=== PATIENT | female | born 1965 ===

== ENCOUNTER 2017-04-22 13:27 | Emergency (ER) | payer MEDICAID, OTHER ==
[2017-04-22 13:27] VITALS: BMI 28.3
[2017-04-22 13:34] VITALS: BP 140/90; PULSE 91; RESP 18; TEMP 98; O2SAT 100
[2017-04-22] MEDS ORDERED: Lidocaine 5% Patch TD STA (13:46)
[2017-04-22] MEDS ORDERED: Lidocaine 5% Patch TD ONE (13:51)
--- NOTE | 2017-04-22 14:03 | ED PDOC ---
HPI: Back Time Seen by Provider: 04/22/17 13:34 Chief Complaint (Nursing): Back Pain Chief Complaint (Provider): back pain History Per: Patient History/Exam Limitations: no limitations Onset/Duration Of Symptoms: Days (x2), Persistent (x1 month) Current Symptoms Are (Timing): Still Present Additional Complaint(s): 52 year old female with previous medical history of metastatic lung cancer, who presents to the emergency department with a complaint of atraumatic bilateral lower back pain worsen in the last 2 days. Denied any incontinence, bloody urine , difficulty urinating, abdominal pain, chest pain, shortness of breath or taking pain mediation for relief. Patient stated pain is present everyday and had tried a "pain patch" from her PCP but it subsequently caused her to vomit. PMD: Thom Awan MD Past Medical History Reviewed: Historical Data, Nursing Documentation, Vital Signs Vital Signs: Last Vital Signs Temp 98 F 04/22/17 13:31 Pulse 91 H 04/22/17 13:31 Resp 18 04/22/17 13:31 BP 140/90 04/22/17 13:31 Pulse Ox 100 04/22/17 13:31 - Medical History PMH: Malignancy (lungs) Denies: Depression - Family History Family History: States: Unknown Family Hx - Immunization History Hx Tetanus Toxoid Vaccination: No Hx Influenza Vaccination: No Hx Pneumococcal Vaccination: No - Home Medications Home Medications: Ambulatory Orders Medication Instructions Recorded Aspirin [Ecotrin] 81 mg PO DAILY 12/07/16 HYDROmorphone [Dilaudid] 1 mg PO QID PRN #15 tab 12/07/16 Ondansetron ODT [Zofran ODT] 1 odt PO BID PRN #20 odt 12/07/16 Polyethylene Glycol 3350 [Miralax] 17 gm PO DAILY #270 ml 12/07/16 oxyCODONE/Acetaminophen [Percocet 1 tab PO BID PRN 12/07/16 5/325 mg Tab] Lidocaine 5% [Lidoderm] 1 ea TD DAILY PRN #15 patch 04/22/17 Meloxicam [Mobic] 7.5 mg PO DAILY PRN #30 tab 04/22/17 Methocarbamol [Robaxin] 500 mg PO Q8 PRN #30 tablet 04/22/17 Ondansetron ODT [Zofran ODT] 4 mg PO TID #21 odt 04/22/17 - Allergies Allergies/Adverse Reactions: Allergies Allergy/AdvReac Type Severity Reaction Status Date / Time No Known Allergies Allergy Verified 04/22/17 13:31 Review of Systems ROS Statement: Except As Marked, All Systems Reviewed And Found Negative Cardiovascular: Negative for: Chest Pain Respiratory: Negative for: Shortness of Breath Gastrointestinal: Negative for: Abdominal Pain Genitourinary Female: Negative for: Dysuria, Incontinence, Hematuria Musculoskeletal: Positive for: Back Pain (lower). Negative for: Other (trauma) Physical Exam - Reviewed Nursing Documentation Reviewed: Yes Vital Signs Reviewed: Yes - Physical Exam Appears: Positive for: Well, Non-toxic, No Acute Distress Head Exam: Positive for: ATRAUMATIC, NORMAL INSPECTION, NORMOCEPHALIC Skin: Positive for: Normal Color. Negative for: Rash Eye Exam: Positive for: Normal appearance, EOMI, PERRL. Negative for: Nystagmus ENT: Positive for: Normal ENT Inspection Neck: Positive for: Normal, Painless ROM, Supple. Negative for: Decreased ROM Cardiovascular/Chest: Positive for: Regular Rate, Rhythm, Chest Non Tender Respiratory: Positive for: Normal Breath Sounds. Negative for: Decreased Breath Sounds, Respiratory Distress Gastrointestinal/Abdominal: Positive for: Normal Exam, Soft. Negative for: Tenderness Back: Positive for: Vertebral Tenderness (paralumbar with spasm bilaterally ). Negative for: L CVA Tenderness, R CVA Tenderness Extremity: Positive for: Normal ROM. Negative for: Tenderness, Pedal Edema Neurologic/Psych: Positive for: Alert (x3), Oriented - Laboratory Results Urine dip results: Negative for: Leukocyte Esterase, Blood, Nitrate, Ketones, Glucose, Bilirubin, Protein - ECG O2 Sat by Pulse Oximetry: 100 (RA) Pulse Ox Interpretation: Normal Medical Decision Making Medical Decision Making: Initial Impression: Back pain Initial Plan: * Urine * Urine dipstick * Lidoderm * Toradol 30mg IM * Valium 10mg PO * Xray LS spine Time: 1533 --Xray LS FINDINGS: BONES: There are no acute compression fractures no retropulsed fragments. Vertebral bodies exhibit normal stature. . Vertebral bodies and facets normally aligned. There is dense appearance of the right-sided L4 pedicle which could be due to facet arthropathy however possibility of an underlying sclerotic lesion within the right L4 pedicle must be considered as well. . In addition, there is a rounded sclerotic lesion in the left inferior pelvic bone and apparent sclerotic changes in the right medial iliac wing and possibly the right sacral ala. 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 . Follow-up of CT scan of the abdomen and pelvis recommended. DISC SPACES: Mild multilevel facet arthropathy most notably affecting L5-S1 through the L3- L4 levels in decreasing order of severity. . Small marginal anterolateral osteophyte formation also noted most conspicuous at the L3-L4 level and less so the remaining levels. OTHER FINDINGS: Large amount of stool seen throughout the colon though most notably within the polyp additionally, cecum and ascending colon consistent with fecal retention/ constipation. Note made of irregular calcific density in the upper abdomen seen on lateral view only. This focus is of uncertain etiology. Followup CT scan of the abdomen pelvis could be performed for further evaluation. IMPRESSION: No acute fractures. Dense appearing right L4 pedicle which may in part be due to hypertrophic facet joint changes however the possibility of a sclerotic lesion within the right L4 pedicle must be excluded. There also sclerotic changes seen within the pelvis. Follow-up CT scan to assess for sclerotic metastasis. Note that these findings were discussed with emergency room [facility] at approximately 3:53 p.m. and back verification. On re-evaluation pt. reports feeling much better. States pain has improved. Pt.' s daughter, Shira, is at bedside who confirms that L4 and hip metastases is a known diagnosis. Pt. f/u with Dr. Devan Rehman, oncology. Scribe Attestation: Documented by Tsering Costa, acting as a scribe for Luigi Kingston PA-C. Provider Scribe Attestation: All medical record entries made by the Scribe were at my direction and personally dictated by me. I have reviewed the chart and agree that the record accurately reflects my personal performance of the history, physical exam, medical decision making, and the department course for this patient. I have also personally directed, reviewed, and agree with the discharge instructions and disposition. Disposition - Clinical Impression Clinical Impression: Back pain, Metastasis - Patient ED Disposition Is Patient to be Admitted: No - Disposition Referrals: Debbi Hair [Outside] Disposition: Routine/Home Disposition Time: 16:24 Condition: STABLE Prescriptions: Lidocaine 5% [Lidoderm] 1 ea TD DAILY PRN #15 patch PRN Reason: Pain Meloxicam [Mobic] 7.5 mg PO DAILY PRN #30 tab PRN Reason: Pain, Mild (1-3) Methocarbamol [Robaxin] 500 mg PO Q8 PRN #30 tablet PRN Reason: Muscle Spasm Ondansetron ODT [Zofran ODT] 4 mg PO TID #21 odt Instructions: Back Pain (ED), Bone Metastasis (ED) Forms: [employer] (Syrian) Print Language: SERBIAN
--- NOTE | 2017-04-22 15:57 | RAD ---
PROCEDURE: Radiographs of the Lumbar Spine. HISTORY: pain COMPARISON: No prior. FINDINGS: BONES: There are no acute compression fractures no retropulsed fragments. Vertebral bodies exhibit normal stature. . Vertebral bodies and facets normally aligned. There is dense appearance of the right-sided L4 pedicle which could be due to facet arthropathy however possibility of an underlying sclerotic lesion within the right L4 pedicle must be considered as well. . In addition, there is a rounded sclerotic lesion in the left inferior pelvic bone and apparent sclerotic changes in the right medial iliac wing and possibly the right sacral ala. 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 . Follow-up of CT scan of the abdomen and pelvis recommended. DISC SPACES: Mild multilevel facet arthropathy most notably affecting L5-S1 through the L3-L4 levels in decreasing order of severity. . Small marginal anterolateral osteophyte formation also noted most conspicuous at the L3-L4 level and less so the remaining levels. OTHER FINDINGS: Large amount of stool seen throughout the colon though most notably within the polyp additionally, cecum and ascending colon consistent with fecal retention/ constipation. Note made of irregular calcific density in the upper abdomen seen on lateral view only. This focus is of uncertain etiology. Followup CT scan of the abdomen pelvis could be performed for further evaluation. IMPRESSION: No acute fractures. Dense appearing right L4 pedicle which may in part be due to hypertrophic facet joint changes however the possibility of a sclerotic lesion within the right L4 pedicle must be excluded. There also sclerotic changes seen within the pelvis. Follow-up CT scan to assess for sclerotic metastasis. Note that these findings were discussed with emergency room [facility] at approximately 3:53 p.m. and back verification.
== END 2017-04-22 16:49 | disposition home or self-care (01) ==
LOC: H.ER 13:27
DX: M54.9 Dorsalgia, unspecified (principal); C79.51 Secondary malignant neoplasm of bone; Z79.82 Long term (current) use of aspirin
CPT/HCPCS: 72100; 96372; 99282; J1885